=== PATIENT | female | born 1970 | race Caucasian/White ===

== ENCOUNTER 2018-04-18 20:56 | Emergency (ER) | payer OTHER ==
[2018-04-18] MEDS ORDERED: Sulfameth/Trimethoprim DS 800-160mg TAB ONE (21:17)
== END 2018-04-18 21:24 | disposition home or self-care (01) ==
LOC: BURERS 20:56
DX: S80.212A Abrasion, left knee, initial encounter (principal); S80.211A Abrasion, right knee, initial encounter; S90.511A Abrasion, right ankle, initial encounter; F41.9 Anxiety disorder, unspecified; L03.115 Cellulitis of right lower limb; F25.9 Schizoaffective disorder, unspecified; W19.XXXA Unspecified fall, initial encounter
CPT/HCPCS: 99283